=== PATIENT | female | born 1975 | race Caucasian/White ===

== ENCOUNTER 2021-08-04 13:27 | Emergency (ER) | payer OTHER ==
[2021-08-04] MEDS ORDERED: ACETAMINOPHEN TAB 500 MG TAB PO STA (16:44)
--- NOTE | 2021-08-04 16:49 | ED ---
General Adult HPI - General Chief complaint: Shortness of Breath Stated complaint: covid+, wants infusion Time Seen by Provider: 08/04/21 16:04 Source: patient Mode of arrival: ambulatory Limitations: no limitations - History of Present Illness Initial comments: Dictation was produced using [employer] dictation software. please excuse any grammatical, word or spelling errors. Chief Complaint: 46-year-old female presents to the emergency department for monoclonal antibodies History of Present Illness: Patient is a 46-year-old female past medical history of Lyme disease, moderate to severe asthma presents to the emergency department for a days of COVID-19 symptoms. Patient states that she contracted COVID-19 from one of her daughters who also tested positive. She checked it at home test couple days ago which was positive. She's been talking with her primary care doctor and the urgent care. She was instructed to come to the emergency department to receive monoclonal antibodies pressure and x-ray performed at the urgent care today which showed a lower lobe infiltrate. She had a ready bed in prescribed steroids and antibiotics. Patient states she's been coughing having fevers. She reports that her wrist asthma medications that have not been working. The ROS documented in this emergency department record has been reviewed and confirmed by me. Those systems with pertinent positive or negative responses have been documented in the HPI. All other systems are other negative and/or noncontributory. PHYSICAL EXAM: General Impression: Alert and oriented x3, not in acute distress, coughing HEENT: Normocephalic atraumatic, extra-ocular movements intact, pupils equal and reactive to light bilaterally, mucous membranes moist. Cardiovascular: Heart regular rate and rhythm Chest: Able to complete full sentences, no retractions, no tachypnea Musculoskeletal: Pulses present and equal in all extremities, no peripheral edema Motor: no focal deficits noted Neurological: CN II-XII grossly intact, no focal motor or sensory deficits noted Skin: Intact with no visualized rashes Psych: Normal affect and mood ED course: 46-year-old female presents to the emergency department for positive at home COVID-19 tests. Patient has been symptomatic for approximately 8 days. She has history of moderate to severe asthma vital signs upon arrival shows temperature of 101.3F, rest of vital signs within acceptable limits. Rapid test in our hospital is positive. The chin not hypoxic not showing any signs of respiratory distress. Patient ordered for monoclonal antibody infusion CBC shows white count of 2.7. Leukopenic with platelets of 68. Patient notified of her CBC results. She is advised follow-up with a primary care doctor regarding her lab abnormalities. She is given monoclonal antibodies. Patient discharged in stable medical condition. She was a regular prescription for antibiotics by her PCP. She is advised to take them. - Related Data Allergies Allergy/AdvReac Type Severity Reaction Status Date / Time erythromycin base Allergy Unknown Verified 08/04/21 14:55 Penicillins Allergy Unknown Verified 08/04/21 14:55 Tetracyclines Allergy Unknown Verified 08/04/21 14:55 Review of Systems ROS Statement: Those systems with pertinent positive or pertinent negative responses have been documented in the HPI. ROS Other: All systems not noted in ROS Statement are negative. Past Medical History Past Medical History: Asthma Additional Past Medical History / Comment(s): lyme disease History of Any Multi-Drug Resistant Organisms: None Reported Past Surgical History: Section, Tonsillectomy Past Psychological History: No Psychological Hx Reported Smoking Status: Never smoker Past Alcohol Use History: None Reported Past Drug Use History: None Reported General Exam Limitations: no limitations Course Vital Signs 08/04/21 08/04/21 08/04/21 14:49 14:54 17:52 Temperature 101.3 F H Pulse Rate 93 89 Respiratory 20 22 18 Rate Blood Pressure 112/75 96/62 O2 Sat by Pulse 98 97 Oximetry 08/04/21 18:18 Temperature 100.3 F H Pulse Rate 94 Respiratory 18 Rate Blood Pressure 98/68 O2 Sat by Pulse 96 Oximetry Medical Decision Making - Lab Data Result diagrams: 08/04/21 17:28 Lab Results 08/04/21 08/04/21 Range/Units 14:58 17:28 WBC 2.7 L (3.8-10.6) k/uL RBC 4.21 (3.80-5.40) m/uL Hgb 13.3 (11.4-16.0) gm/dL Hct 41.2 (34.0-46.0) % MCV 98.0 (80.0-100.0) fL MCH 31.6 (25.0-35.0) pg MCHC 32.2 (31.0-37.0) g/dL RDW 11.8 (11.5-15.5) % Plt Count 68 L (150-450) k/uL MPV 10.7 Neutrophils % 75 % Lymphocytes % 15 % Monocytes % 9 % Eosinophils % 0 % Basophils % 0 % Neutrophils # 2.0 (1.3-7.7) k/uL Lymphocytes # 0.4 L (1.0-4.8) k/uL Monocytes # 0.2 (0-1.0) k/uL Eosinophils # 0.0 (0-0.7) k/uL Basophils # 0.0 (0-0.2) k/uL Manual Slide Review Performed Coronavirus (PCR) Detected A (Not Detectd) Disposition Clinical Impression: Coronavirus infection Disposition: HOME SELF-CARE Condition: Fair Instructions (If sedation given, give patient instructions): Coronavirus Disease 2019 (COVID-19) Is patient prescribed a controlled substance at d/c from ED?: No Referrals: Casa Stout DO [Primary Care Provider] - 1-2 days
[2021-08-04] MEDS ORDERED: SODIUM CHLORIDE 0.9% 50 ML IVPB ONE (17:00)
[2021-08-04] MEDS ORDERED: BAMLANIVIMAB (EUA) 700 MG, ETESEVIMAB (EUA) 1,400 MG in SODIUM CHLORIDE 0.9% 100 ML IVPB ONE (17:30)
[2021-08-04 17:37] LABS: Basophils % (A) 0 %; Eosinophils % (A) 0 %; HCT 41.2 % (34.0-46.0); HGB 13.3 gm/dL (11.4-16.0); Lymphocytes # (A) 0.4 k/uL (1.0-4.8); Lymphocytes % (A) 15 %; MCH 31.6 pg (25.0-35.0); MCHC 32.2 g/dL (31.0-37.0); Mean Platelet Volume 10.7; Monocytes # (A) 0.2 k/uL (0-1.0); Monocytes % (A) 9 %; Neutrophils % (A) 75 %; RBC 4.21 m/uL (3.80-5.40); RDW 11.8 % (11.5-15.5); WBC 2.7 k/uL (3.8-10.6)
[2021-08-04 18:26] LABS: Platelet Count 68 k/uL (150-450)
[2021-08-04 19:36] VITALS: BP 96/76; PULSE 94; RESP 18; TEMP 99.9
== END 2021-08-04 19:43 | disposition home or self-care (01) ==
LOC: EC 13:27
DX: U07.1 COVID-19 (principal); J45.909 Unspecified asthma, uncomplicated; Z88.0 Allergy status to penicillin
CPT/HCPCS: 99283; M0245; 36415; 85025; 87635